=== PATIENT | male | born 1965 | race Caucasian/White ===

== ENCOUNTER 2016-08-16 07:52 | Day surgery (SDC) | payer MEDICARE ==
[2016-08-16 08:33] VITALS: RESP 16; TEMP 98.5
[2016-08-16] MEDS ORDERED: LACTATED RINGERS 1,000 ML IV SCH (08:49)
[2016-08-16 08:59] VITALS: BMI 34.3
[2016-08-16] MEDS ORDERED: PROPOFOL 10 MG/ML 20 ML VIAL IV ONE (09:22)
[2016-08-16] MEDS ORDERED: LIDOCAINE 1% INJ 10MG/ML (20 ML MDV) ONE (09:22)
--- NOTE | 2016-08-16 09:56 | P.PCN ---
Date of Procedure: 08/16/16 Preoperative Diagnosis: Blood per rectum Postoperative Diagnosis: Sigmoid diverticuli, poor bowel prep, for polypoid areas biopsied at 20 cm. 2 removed with snare polypectomy and retrieved for was very small amount retrieved , and 2 biopsied removed with cold biopsy forceps Procedure(s) Performed: Colonoscopy Anesthesia: MAC Surgeon: Janee Greer Estimated Blood Loss (ml): 0 IV fluids (ml): 200 Pathology: other (3 polypoid areas from 20 cm, removed with snare polypectomy and to cold biopsy) Condition: stable Disposition: PACU Indications for Procedure: Prior history of blood per rectum Operative Findings: Several small polypoid areas at 20 cm removed with snare polypectomy and retrieved, another attempted to be removed with snare polypectomy very small appeared to be obliterated with cautery, two biopsied removed with cold forceps Description of Procedure: Patient was taken to the endoscopy suite and following sedation rectal exam was performed. Patient was noted to have adequate sphincter tone no masses. Colonoscope was passed through the anus into the rectum. Bowel prep was suboptimal. Scope was able to be advanced however through the sigmoid colon, splenic flexure, transverse colon, hepatic flexure right colon down to the area of the cecum. Circumferential observation mucosa did not reveal any lesions of concern in the cecum or right colon. No lesions of concern were noted in the transverse colon. As the scope was withdrawn no lesions of concern were noted in the left colon there were scattered diverticuli. In the sigmoid colon at 20 cm several mucosal changes were identified to biopsied removed with snare polypectomy 1 was retrieved there was very small and felt to be obliterated, and to cold biopsy removal of mucosal changes were performed. Scope was brought down into the rectum was retroflexed no lesions of concern identified. Proximally 10 minutes were taken to withdraw the scope from the area of the cecum to the rectum. Impression/plan 1. Mucosal changes biopsied at 20 cm 2. Diverticuli Plan: 1. Await results of pathology 2. Conservative management of diverticuli
--- NOTE | 2016-08-16 09:58 | P.DS ---
Providers Attending physician: Janee Greer Primary care physician: Darnell Bazzi Plan - Discharge Summary Discharge Medication List Dextroamphetamine/Amphetamine [Adderall Xr] 2 tab PO QAM 08/16/16 [History] Diazepam [Valium] 10 mg PO BID 08/16/16 [History] Diovan(Unknown Dose) 1 tab PO HS 08/16/16 [History] Etodolac [Lodine] 400 mg PO BID 08/16/16 [History] Lipitor(Unknowndose) 1 tab PO DAILY 08/16/16 [History] Multivitamins, Thera [Multivitamin] 1 tab PO DAILY 08/16/16 [History] Naproxen [Naprosyn] 500 mg PO Q8H 08/16/16 [History] Sertraline [Zoloft] 200 mg PO DAILY 08/16/16 [History] Synthroid(Unknown Dose) 1 tab PO DAILY 08/16/16 [History] Unknown Water Pill 1 tab PO DAILY 08/16/16 [History] Zanaflex(Unknown Dose) 1 tab PO QID 08/16/16 [History] oxyCODONE HCL [OxyCONTIN] 40 mg PO TID 08/16/16 [History] traMADol HCl [Ultram] 100 mg PO TID 08/16/16 [History] traZODone HCL 150 mg PO HS 08/16/16 [History] Follow up Appointment(s)/Referral(s): Janee Greer MD [STAFF PHYSICIAN] - 1 Week Activity/Diet/Wound Care/Special Instructions: Diverticular diet Discharge Disposition: HOME SELF-CARE
[2016-08-16 10:47] VITALS: BP 152/90; PULSE 70
== END 2016-08-16 10:54 | disposition home or self-care (01) ==
LOC: ORWHC2ENDO 07:52
PROVIDERS: ATTEND Surgery
DX: D12.5 Benign neoplasm of sigmoid colon (principal); K63.5 Polyp of colon; K57.30 Diverticulosis of large intestine without perforation or abscess without bleeding; I10 Essential (primary) hypertension; E78.5 Hyperlipidemia, unspecified; F17.200 Nicotine dependence, unspecified, uncomplicated; E07.9 Disorder of thyroid, unspecified; G89.29 Other chronic pain; M54.5 Low back pain; Z79.891 Long term (current) use of opiate analgesic; Z79.899 Other long term (current) drug therapy; Z88.0 Allergy status to penicillin
CPT/HCPCS: 88305; 45380; 45385; J2001; J2704; 99153

== ENCOUNTER → 2019-06-12 | Outpatient (CLI) | payer OTHER ==
--- NOTE | 2019-06-14 10:00 | MR ---
EXAMINATION TYPE: MR lumbar spine wo/w con DATE OF EXAM: 06/12/2019 COMPARISON: 07/08/2016 HISTORY: Pain CONTRAST: 9 mL intravenous Gadavist. TECHNIQUE: Multiplanar, multisequence images of the lumbar spine were acquired. FINDINGS: L5-S1: No focal disc herniation is evident. Disc height appears preserved. Pedicle screws are present L5-S1 causing limitation. Some facet hypertrophy is suspected. AP spinal canal stenosis is not ident ified. Laminectomies been performed. L4-L5: No focal disc herniation or significant disc bulge is evident. No spinal canal stenosis presen t. Facet degenerative changes are present. Some right mild foraminal narrowing may be present. L3-L4: No significant disc bulge or disc herniation. No spinal canal stenosis. No foraminal stenosi s. Mild facet hypertrophy is present. L2-L3: No significant disc bulge or disc herniation. No spinal canal stenosis. No foraminal stenosi s. Mild facet hypertrophy is present on the left. L1-L2: No significant disc bulge or disc herniation. No spinal canal stenosis. No foraminal stenosi s. T12-L1: No significant disc bulge or disc herniation. No spinal canal stenosis. No foraminal stenos is. No abnormal enhancement. IMPRESSION: 1. Postsurgical changes L5-S1. 2. Facet hypertrophy appears greatest at L4-5. There is limitation of evaluation due to the magnetic susceptibility artifact. However, no obvious stenosis is identified. Mild right foraminal narrowing may be present at L4-5
== END ==
LOC: RADMRIMAIN 13:47
PROVIDERS: ATTEND Pain Medicine Interventional Pain Medicine
DX: M51.26 Other intervertebral disc displacement, lumbar region (principal); M47.816 Spondylosis without myelopathy or radiculopathy, lumbar region; Z98.890 Other specified postprocedural states
CPT/HCPCS: 72158; A9585

== ENCOUNTER → 2020-03-05 | Outpatient (CLI) | payer MEDICARE ==
[2020-03-05 17:06] LABS: African American GFR (CKD) 116.6 (60.0-200.0); Albumin 4.6 g/dL (3.80-4.90); Albumin/Globulin Ratio 2.3 (1.60-3.17); Anion Gap 11.4 mmol/L (4.00-12.00); BUN/Creat Ratio 17.5 Ratio (12.00-20.00); Calcium 9.7 mg/dL (8.7-10.3); Carbon Dioxide 20.6 mmol/L (21.6-31.8); Chol/HDL Ratio 3.08; LDL Cholesterol,Calculated 130.8 mg/dL (0.0-131.0); Non-African American GFR(CKD) 100.6 (60.0-200.0); Potassium 4.6 mmol/L (3.5-5.5); Total Bilirubin 0.6 mg/dL (0.3-1.2); Total Protein 6.6 g/dL (6.2-8.2); VLDL Calculation 35.2 mg/dL (5.00-40.00)
== END | disposition home or self-care (01) ==
LOC: LABWHC1 10:29
PROVIDERS: ATTEND Family Medicine
DX: I10 Essential (primary) hypertension (principal); E03.9 Hypothyroidism, unspecified; E78.2 Mixed hyperlipidemia; R73.01 Impaired fasting glucose
CPT/HCPCS: 36415; 80053; 80061; 83036; 84443

== ENCOUNTER → 2020-11-04 | Outpatient (CLI) | payer MEDICARE ==
--- NOTE | 2020-11-04 15:29 | XR ---
EXAMINATION TYPE: XR shoulder complete RT DATE OF EXAM: 11/04/2020 COMPARISON: None HISTORY: Arthritis, pain TECHNIQUE: 3 view right shoulder FINDINGS: No acute fracture or dislocation is evident. Ribs appear intact. Acromioclavicular joint galarza s mild hypertrophy. IMPRESSION: 1. No acute osseous abnormality right shoulder
== END | disposition home or self-care (01) ==
LOC: RADXRMAIN 11:32
PROVIDERS: ATTEND Nurse Practitioner Family
DX: M25.511 Pain in right shoulder (principal)

== ENCOUNTER 2021-09-02 11:02 | Emergency (ER) | payer MEDICARE ==
[2021-09-02] MEDS ORDERED: CYCLOBENZAPRINE 10 MG TAB PO STA (11:27)
--- NOTE | 2021-09-02 12:01 | ED ---
General Adult HPI - General Chief complaint: Back Pain/Injury Stated complaint: rib pain/cough/wants covid test Time Seen by Provider: 09/02/21 11:16 Source: patient Mode of arrival: ambulatory Limitations: no limitations - History of Present Illness Initial comments: This 55-year-old male asked medical history of COPD and hypertension presents to the emergency department with cough and right-sided back pain only with coughing since Monday. Patient states he was exposed to COVID-19 on Monday and began getting a dry cough on Monday morning. Patient states he has right-sided mid back pain only when coughing. Patient states he has not received any of the COVID-19 vaccines. Patient denies any mucus production, hemoptysis, bowel or bladder retention or incontinence, fever, shortness of breath, abdominal pain, nausea, headache, change in vision, vomiting. - Related Data Home Medications Medication Instructions Recorded Confirmed Atorvastatin [Lipitor] 20 mg PO DAILY 09/02/21 09/02/21 Dextroamphetamine/Amphetamine 30 mg PO DAILY 09/02/21 09/02/21 [Adderall] Furosemide [Lasix] 80 mg PO DAILY 09/02/21 09/02/21 Levothyroxine Sodium [Synthroid] 100 mcg PO DAILY 09/02/21 09/02/21 Losartan Potassium 100 mg PO DAILY 09/02/21 09/02/21 buPROPion XL [Wellbutrin XL] 150 mg PO DAILY 09/02/21 09/02/21 cloNIDine HCL [Catapres] 0.2 mg PO BID 09/02/21 09/02/21 lamoTRIgine [LaMICtal] 100 mg PO DAILY 09/02/21 09/02/21 Allergies Allergy/AdvReac Type Severity Reaction Status Date / Time Penicillins AdvReac Unknown Verified 09/02/21 12:26 Childhood Review of Systems ROS Statement: Those systems with pertinent positive or pertinent negative responses have been documented in the HPI. ROS Other: All systems not noted in ROS Statement are negative. Past Medical History Past Medical History: COPD, GERD/Reflux, Hyperlipidemia, Hypertension, Musculoskeletal Disorder History of Any Multi-Drug Resistant Organisms: None Reported Past Surgical History: Back Surgery Past Psychological History: ADD/ADHD Smoking Status: Current every day smoker Past Alcohol Use History: Daily Past Drug Use History: None Reported General Exam Limitations: no limitations General appearance: alert, in no apparent distress Head exam: Present: atraumatic, normocephalic, normal inspection Eye exam: Present: normal appearance, PERRL, EOMI. Absent: scleral icterus, conjunctival injection, periorbital swelling ENT exam: Present: normal exam, mucous membranes moist Neck exam: Present: full ROM Respiratory exam: Present: wheezes (Patient states he always has wheezing due to his COPD.). Absent: respiratory distress, rales, rhonchi, stridor, chest wall tenderness Cardiovascular Exam: Present: regular rate, normal rhythm, normal heart sounds. Absent: systolic murmur, diastolic murmur, rubs, gallop, clicks GI/Abdominal exam: Present: soft, normal bowel sounds. Absent: distended, tenderness, guarding, rebound, rigid Extremities exam: Present: normal inspection, full ROM, normal capillary refill. Absent: tenderness, pedal edema, joint swelling, calf tenderness Back exam: Present: full ROM, paraspinal tenderness (Right-sided paraspinal tenderness to lower thoracic spine). Absent: CVA tenderness (R), CVA tenderness (L), muscle spasm, vertebral tenderness Neurological exam: Present: alert, oriented X3, CN II-XII intact Psychiatric exam: Present: normal affect, normal mood Skin exam: Present: warm, dry, intact, normal color. Absent: rash Course Vital Signs 09/02/21 09/02/21 09/02/21 11:10 12:03 13:26 Temperature 98.3 F 98.1 F Pulse Rate 93 83 79 Respiratory 18 16 16 Rate Blood Pressure 186/119 178/119 193/108 O2 Sat by Pulse 95 96 98 Oximetry Medical Decision Making - Medical Decision Making This 55-year-old male presents emergency Department with a dry cough and was right paraspinal pain when coughing since Monday. Patient states his back pain is getting better. COVID-19 positive. Chest x-ray impression: No acute process. Underlying emphysematous change may be present on lateral view with increased retrosternal air space. There is no suspicious focal airspace opacity, pleural effusion, or pneumothorax seen. Patient blood pressure elevated, he states he is on blood pressure medication at home but has not taken it lately. Patient states he only takes his blood pressure medication when he gets a headache. Discussed the risk of high blood pressure and advised patient to follow-up with primary care provider in next 1-2 days and to take medication as prescribed. Patient states he does not had a headache or change in vision at this time. Instructions given on getting a pulse oximeter and to take vitamin C, vitamin D and zinc. Patient states he would like to receive the covid 19 antibody infusion. He received the infusion without any complications. Patient to be sent home with strict return precautions. Patient verbally agreed to plan. Patient sent home in stable condition and to follow-up with primary care provider next 1-2 days. Case discussed my attending, Dr. Carlson. - Lab Data Lab Results 09/02/21 Range/Units 11:42 Coronavirus (PCR) Detected A (Not Detectd) Disposition Clinical Impression: COVID-19 Disposition: HOME SELF-CARE Condition: Stable Instructions (If sedation given, give patient instructions): Coronavirus Disease 2019 (COVID-19) Additional Instructions: Please return to the emergency department with any concerning, new, worsening symptoms. Advised to get pulse oximeter from [facility] and to return to the emergency department with oxygen drops low 90%. [id number] zinc, vitamin C, vitamin D. Candidate Tylenol or Motrin as directed for symptoms. Please follow-up with primary care provider next 1-2 days. Is patient prescribed a controlled substance at d/c from ED?: No Referrals: Rigoberto Hooker MD [Primary Care Provider] - 1-2 days Time of Disposition: 13:55
--- NOTE | 2021-09-02 12:17 | XR ---
EXAMINATION TYPE: XR chest 2V DATE OF EXAM: 09/02/2021 COMPARISON: NONE HISTORY: Cough and right-sided pain. TECHNIQUE: Frontal and lateral views of the chest are obtained. FINDINGS: Underlying emphysematous change may be present on lateral view with increased retrosternal airspace. There is no suspicious focal air space opacity, pleural effusion, or pneumothorax seen. T he cardiac silhouette size is within normal limits. The osseous structures are intact. IMPRESSION: No acute process.
[2021-09-02] MEDS ORDERED: SOTROVIMAB (EUA) 500 MG in SODIUM CHLORIDE 0.9% 100 ML IVPB ONE (13:30)
[2021-09-02] MEDS ORDERED: SODIUM CHLORIDE 0.9% 50 ML IVPB ONE (14:00)
[2021-09-02 15:01] VITALS: BP 176/107; PULSE 80; RESP 18; TEMP 97.8
== END 2021-09-02 15:04 | disposition home or self-care (01) ==
LOC: EC 11:02
DX: U07.1 COVID-19 (principal); I10 Essential (primary) hypertension; J44.9 Chronic obstructive pulmonary disease, unspecified; E78.5 Hyperlipidemia, unspecified; K21.9 Gastro-esophageal reflux disease without esophagitis; F17.200 Nicotine dependence, unspecified, uncomplicated; F90.9 Attention-deficit hyperactivity disorder, unspecified type; Z79.890 Hormone replacement therapy; Z79.899 Other long term (current) drug therapy
CPT/HCPCS: 87635; 71046; 99284; Q0247

== ENCOUNTER → 2022-12-22 | Outpatient (CLI) | payer MEDICARE ==
--- NOTE | 2022-12-22 14:46 | P.SLEEP ---
History of Present Illness DATE: 12/22/2022 CONSULTATION/NEW PATIENT EVALUATION HISTORY OF PRESENT ILLNESS/SLEEP-WAKE EVALUATION: 57 year old gentleman had been evaluated in the sleep center for possible obstructive sleep apnea hypopnea syndrome. SLEEP SCHEDULE: Usually sleep schedule is about 6 hours per night. FALLING ASLEEP: Sometimes patient has problems with the falling asleep, has TV set and bedroom. DURING SLEEP: Patient sleeps by himself, no information about snoring. Patient wakes up from sleep up to 5 times with 3 episodes of nocturia. No history of hypnogogical hallucinations, sleep paralysis, or cataplexy. DURING THE DAY/WAKE STATE: In the morning patient wake up tired. [place] sleepiness scale is 2. Patient doesn't take naps. PAST MEDICAL HISTORY: Hypertension, depression, hypothyroidism, hyperlipidemia, back problems. PAST SURGICAL HISTORY: Back surgery. MEDICATIONS: Clonidine 0.2 mg twice a day, Adderall 30 mg twice a day, Lipitor, Synthroid. SOCIAL HISTORY: Patient smokes for about 45 years presently half pack a day, alcohol consumption daily 46 beers. FAMILY HISTORY: Heart problems. REVIEW OF SYSTEMS: Multiple awakenings from sleep. No fevers. No double vision. No recent chest pain. No shortness of breath. No abdominal pain. No bleeding episodes. No blood in urine. No seizure episodes. PHYSICAL EXAMINATION: GENERAL: A pleasant patient without any distress. VITAL SIGNS: BP 182/120 , HR 95 , RR 16 , weight 231.6 pounds, height 5 foot 6.5 inches, body mass index 37.0 . HEENT: PERRLA, EOMI. Evaluation of oropharynx showed tongue protrudes midline, low position of soft palate Mallampati 4. NECK: Supple. No JVD. Thyroid is not palpable. 18 inches in circumference. LUNGS: Clear to percussion and to auscultation. Good air exchange. No wheezing or rhonchi. HEART: S1, S2 regular. No murmurs, gallops or rubs. ABDOMEN: Soft and nontender. Bowel sounds are present. No organomegaly appreciated. Obese EXTREMITIES: No clubbing or cyanosis. FIRST COOK: Awake, alert, and oriented x3. Cranial nerves 2 to 7 intact. There is no fasciculation or atrophy noted. No focal deficits observed. ASSESSMENT: 1. Multiple awakenings from sleep, extremely low position of soft palate Mallampati 4, wide neck 18 inches in circumference. Obstructive sleep apnea- hypopnea syndrome. 2. Obesity, body mass index 37.0. 3. Hypertension. 4. Depression. 5 hypothyroidism. 6 . Hyperlipidemia. 7. Back problems, status post back surgery. PLAN: 1. Polysomnography for evaluation of patient's breathing during sleep. 2. CPAP/BiPAP titration if sleep study confirms obstructive sleep apnea- hypopnea syndrome. 3. Preferable position during sleep on the side. 4. No driving if patient feels any sleepiness. Patient is aware of civil and criminal liability for unsafe driving. 5. Sleep hygiene with regular sleep time for at least 7.5-8 hours. 6. Watching and losing weight. Thank you very much for referring this patient for consultation. Sincerely, Iain Mcgraw MD, PhD, FAASM. Diplomat of [place] [employer], Sleep Medicine Board by [place] [employer] [place] [employer] [facility] [place] Past Medical History Past Medical History: COPD, GERD/Reflux, Hyperlipidemia, Hypertension, Musculoskeletal Disorder History of Any Multi-Drug Resistant Organisms: None Reported Past Surgical History: Back Surgery Past Psychological History: ADD/ADHD Smoking Status: Current every day smoker Past Alcohol Use History: Daily Past Drug Use History: None Reported Medications and Allergies Home Medications Medication Instructions Recorded Confirmed Type Atorvastatin [Lipitor] 20 mg PO DAILY 09/02/21 09/02/21 History Dextroamphetamine/Amphetamine 30 mg PO DAILY 09/02/21 09/02/21 History [Adderall] Furosemide [Lasix] 80 mg PO DAILY 09/02/21 09/02/21 History Levothyroxine Sodium [Synthroid] 100 mcg PO DAILY 09/02/21 09/02/21 History Losartan Potassium 100 mg PO DAILY 09/02/21 09/02/21 History buPROPion XL [Wellbutrin XL] 150 mg PO DAILY 09/02/21 09/02/21 History cloNIDine HCL [Catapres] 0.2 mg PO BID 09/02/21 09/02/21 History lamoTRIgine [LaMICtal] 100 mg PO DAILY 09/02/21 09/02/21 History Allergies Allergy/AdvReac Type Severity Reaction Status Date / Time Penicillins AdvReac Unknown Verified 09/02/21 12:26 Childhood Sleep Note - Sleep Note Sleep Note: Temperature: Pulse Rate: Respiratory Rate: Blood Pressure: SpO2: Height: Weight: BMI: Neck Circumference:
== END ==
LOC: SLEEP 14:11
PROVIDERS: ATTEND Internal Medicine
DX: G47.33 Obstructive sleep apnea (adult) (pediatric) (principal); E66.9 Obesity, unspecified; I10 Essential (primary) hypertension; F32.A Depression, unspecified; E03.9 Hypothyroidism, unspecified; E78.5 Hyperlipidemia, unspecified; Z99.89 Dependence on other enabling machines and devices; M54.9 Dorsalgia, unspecified; Z68.37 Body mass index [BMI] 37.0-37.9, adult; Z88.0 Allergy status to penicillin; F17.210 Nicotine dependence, cigarettes, uncomplicated; Z98.890 Other specified postprocedural states
CPT/HCPCS: 99211

== ENCOUNTER 2023-01-25 19:29 | Outpatient (CLI) | payer MEDICARE | END 2023-01-26 23:59 | LOC: 3 N SLEEP 19:29 → EDSTATUS 19:30 → 3 N SLEEP 01-26 06:25 | PROVIDERS: ATTEND Internal Medicine | DX: G47.33 Obstructive sleep apnea (adult) (pediatric) (principal); F17.200 Nicotine dependence, unspecified, uncomplicated; Z88.0 Allergy status to penicillin | CPT/HCPCS: 95810 ==

== ENCOUNTER → 2023-05-23 | Outpatient (CLI) | payer MEDICARE | LOC: CPPFTMAIN 11:38 | PROVIDERS: ATTEND Family Medicine | DX: J42 Unspecified chronic bronchitis (principal); R06.2 Wheezing; F17.200 Nicotine dependence, unspecified, uncomplicated; Z88.0 Allergy status to penicillin | CPT/HCPCS: 94060; 94726; 94729 ==

== ENCOUNTER 2023-10-26 11:10 | Emergency (ER) | payer MEDICARE ==
[2023-10-26 11:44] VITALS: TEMP 100.4
[2023-10-26] MEDS: methylPREDNISolone SOD SUCCI 125 MG/2 ML VIAL IM ONE (12:11)
[2023-10-26] MEDS: ACETAMINOPHEN TAB 500 MG TAB PO STA (12:11)
--- NOTE | 2023-10-26 12:11 | ED ---
General Adult HPI - General Chief complaint: Fever Stated complaint: Cough, congestion Time Seen by Provider: 10/26/23 11:26 Source: patient, RN notes reviewed Mode of arrival: ambulatory Limitations: no limitations - History of Present Illness Initial comments: 57-year-old male with a past medical history of COPD presents to the emergency department with chief complaint of cough, congestion. He states that this started yesterday. He reports chills yesterday. He also admits to sore throat and has been using wuay-mya-adjrhhy spray which has helped. He notes that he was coughing very hard yesterday feels like he pulled a muscle in his abdomen. - Related Data Home Medications Medication Instructions Recorded Confirmed Dextroamphetamine/Amphetamine 30 mg PO BID 09/02/21 10/26/23 [Adderall] Furosemide [Lasix] 80 mg PO DAILY PRN 09/02/21 10/26/23 cloNIDine HCL [Catapres] 0.2 mg PO BID 09/02/21 10/26/23 Budesonide/Formoterol Fumarate 2 puff INHALATION RT-BID 10/26/23 10/26/23 [Symbicort 160-4.5 Mcg Inhaler] Ipratropium-Albuterol Nebulize 3 ml INHALATION RT-TID 10/26/23 10/26/23 [Duoneb 0.5 mg-3 mg/3 ml Soln] Montelukast [Singulair] 10 mg PO HS 10/26/23 10/26/23 Previous Rx's Medication Instructions Recorded Oseltamivir [Tamiflu] 75 mg PO Q12HR #10 cap 10/26/23 Allergies Allergy/AdvReac Type Severity Reaction Status Date / Time Penicillins AdvReac Unknown Verified 10/26/23 12:49 Childhood Review of Systems ROS Statement: Those systems with pertinent positive or pertinent negative responses have been documented in the HPI. ROS Other: All systems not noted in ROS Statement are negative. Past Medical History Past Medical History: Asthma, COPD, GERD/Reflux, Hyperlipidemia, Hypertension, Musculoskeletal Disorder History of Any Multi-Drug Resistant Organisms: None Reported Past Surgical History: Back Surgery Past Psychological History: ADD/ADHD Smoking Status: Current every day smoker Past Alcohol Use History: Daily Past Drug Use History: None Reported General Exam Limitations: no limitations General appearance: alert, in no apparent distress Head exam: Present: atraumatic, normocephalic, normal inspection Eye exam: Present: normal appearance, PERRL, EOMI. Absent: scleral icterus, conjunctival injection, periorbital swelling ENT exam: Present: normal exam, mucous membranes moist Respiratory exam: Present: wheezes. Absent: respiratory distress, rales, rhonchi, stridor Cardiovascular Exam: Present: regular rate, normal rhythm, normal heart sounds. Absent: systolic murmur, diastolic murmur, rubs, gallop, clicks GI/Abdominal exam: Present: soft, normal bowel sounds. Absent: distended, tenderness, guarding, rebound, rigid Extremities exam: Present: normal inspection, full ROM, normal capillary refill. Absent: tenderness, pedal edema, joint swelling, calf tenderness Back exam: Present: normal inspection Neurological exam: Present: alert, oriented X3 Psychiatric exam: Present: normal affect, normal mood Skin exam: Present: warm, dry, intact, normal color. Absent: rash Course Vital Signs 10/26/23 10/26/23 10/26/23 11:19 12:18 13:19 Temperature 100.4 F H Pulse Rate 102 H 104 H Respiratory 22 18 Rate Blood Pressure 136/82 O2 Sat by Pulse 94 L Oximetry 10/26/23 10/26/23 13:29 14:24 Temperature Pulse Rate 100 82 Respiratory 18 Rate Blood Pressure 157/80 O2 Sat by Pulse 92 L Oximetry Medical Decision Making - Medical Decision Making Was pt. sent in by a medical professional or institution ([facility]din, FURNITURE M[employer] HELPER, urgent ca re, hospital, or care home...) When possible be specific @ -No Did you speak to anyone other than the patient for history (EMS, parent, family, police, friend...)? What history was obtained from this source @ -No Did you review nursing and triage notes (agree or disagree)? Why? @ -I reviewed and agree with nursing and triage notes Were old charts reviewed (outside hosp., previous admission, EMS record, old EKG, old radiological studies, urgent care reports/EKG's, care home records)? Report findings @ -No old charts were reviewed Differential Diagnosis (chest pain, altered mental status, abdominal pain women, abdominal pain men, vaginal bleeding, weakness, fever, dyspnea, syncope, headache, dizziness, GI bleed, back pain, seizure, CVA, palpatations, mental health, musculoskeletal)? @ -Differential Fever: Pneumonia, viral URI, endocarditis, myocarditis, pericarditis, otitis, sinusitis, peritonsillar Abscess, retropharyngeal Abscess, epiglottitis, peritonitis, appendicitis, Zayda cystitis, diverticulitis, hepatitis, colitis, UTI, PID, TOA, pyelonephritis, prostatitis, epididymitis, meningitis, encephalitis, pulmonary embolism, CVA, thyroid storm, pancreatitis, adrenal crisis, cavernous sinus thrombosis, this is not meant to be an all-inclusive list. EKG interpreted by me (3pts min.). @ -None X-rays interpreted by me (1pt min.). @ -Chest x-ray shows no acute infiltrate CT interpreted by me (1pt min.). @ -None done U/S interpreted by me (1pt. min.). @ -None done What testing was considered but not performed or refused? (CT, X-rays, U/S, labs)? Why? @ -None What meds were considered but not given or refused? Why? @ -None Did you discuss the management of the patient with other professionals (professionals i.e. , PA, FURNITURE MOVER HELPER, lab, RT, psych nurse, social services, wallpaper consultant, teacher, child support officer, case resource manager)? Give summary @ -No Was smoking cessation discussed for >3mins.? @ -No Was critical care preformed (if so, how long)? @ -No Were there social determinants of health that impacted care today? How? (Homelessness, low income, unemployed, alcoholism, drug addiction, transportation, low edu. Level, literacy, decrease access to med. care, half-way, rehab)? @ -No Was there de-escalation of care discussed even if they declined (Discuss DNR or withdrawal of care, Hospice)? DNR status @ -No What co-morbidities impacted this encounter? (DM, HTN, Smoking, COPD, CAD, Cancer, CVA, ARF, Chemo, Hep., AIDS, mental health diagnosis, sleep apnea, morbid obesity)? @ -None Was patient admitted / discharged? Hospital course, mention meds given and route, prescriptions, significant lab abnormalities, going to OR and other pertinent info. @ -Discharge. Patient presented to the emergency department for fever, cough and congestion. X-ray obtained which shows no acute infiltrate. Patient has a positive for influenza A. On examination, patient does have wheezes throughout but is in no respiratory distress. Patient was given a dose of Solu-Medrol and a breathing treatment. Patient advised positive sinus and will be discharged home. Patient will be started on Tamiflu. Patient understanding agreeable plan. Strict return precautions discussed. Patient stable at time of discharge. Case discussed with Matt Undiagnosed new problem with uncertain prognosis? @ -No Drug Therapy requiring intensive monitoring for toxicity (Heparin, Nitro, Insul in, Cardizem)? @ -No Were any procedures done? @ -No Diagnosis/symptom? @ -Influenza A Acute, or Chronic, or Acute on Chronic? @ -Acute Uncomplicated (without systemic symptoms) or Complicated (systemic symptoms)? @ -Uncomplicated Side effects of treatment? @ -No Exacerbation, Progression, or Severe Exacerbation? @ -No Poses a threat to life or bodily function? How? (Chest pain, [place], [place], pneumonia, PE, COPD, DKA, ARF, appy, cholecystitis, CVA, Diverticulitis, Homicidal, Suicidal, threat to staff... and all critical care pts) @ -No - Lab Data Lab Results 10/26/23 Range/Units 11:57 Influenza Type A (PCR) Detected A (Not Detectd) Influenza Type B (PCR) Not Detected (Not Detectd) RSV (PCR) Not Detected (Not Detectd) SARS-CoV-2 (PCR) Not Detected (Not Detectd) Disposition Clinical Impression: Influenza Disposition: HOME SELF-CARE Condition: Stable Instructions (If sedation given, give patient instructions): Fever in Adults (ED), Influenza (ED) Additional Instructions: Alternate Tylenol and Motrin for fever. Utilize over the counter medications for cough and congestion. Return to the emergency department for new or worsening symptoms. Prescriptions: Oseltamivir [Tamiflu] 75 mg PO Q12HR #10 cap Is patient prescribed a controlled substance at d/c from ED?: No Referrals: None,Stated [Primary Care Provider] - 1-2 days
[2023-10-26 12:19] VITALS: RESP 18
[2023-10-26] MEDS: IPRATROPIUM-ALBUTEROL 3 ML NEB INHALATION STA (13:18)
--- NOTE | 2023-10-26 13:48 | XR ---
EXAMINATION TYPE: XR chest 2V DATE OF EXAM: 10/26/2023 COMPARISON: 09/10/2021 HISTORY: 57-year-old male with cough for 2 days TECHNIQUE: PA and lateral views FINDINGS: The cardiomediastinal silhouette, aorta, and pulmonary vasculature are within normal limits. Lungs an d pleural spaces are clear. IMPRESSION: No acute cardiopulmonary process.
[2023-10-26 14:40] VITALS: BP 157/80; PULSE 82
== END 2023-10-26 14:25 | disposition home or self-care (01) ==
LOC: EC 11:10
DX: J10.1 Influenza due to other identified influenza virus with other respiratory manifestations (principal); J44.9 Chronic obstructive pulmonary disease, unspecified; F17.200 Nicotine dependence, unspecified, uncomplicated
CPT/HCPCS: 94640; 87636; 71046; 99283; 96372; J2930

== ENCOUNTER → 2023-11-23 | Outpatient (CLI) | payer MEDICARE ==
[2023-11-23 15:57] LABS: ALT 33 U/L (10-49); AST 28 U/L (14-35); Albumin 4.6 g/dL (3.8-4.9); Albumin/Globulin Ratio 1.77 Ratio (1.60-3.17); Alkaline Phosphatase 50 U/L (41-126); BUN/Creat Ratio 10.62 Ratio (12.00-20.00); Blood Urea Nitrogen 8.5 mg/dL (9.0-27.0); Calcium 9.6 mg/dL (8.7-10.3); Carbon Dioxide 20.3 mmol/L (21.6-31.8); Chloride 106 mmol/L (96-109); Chol/HDL Ratio 3.35 Ratio; Globulin 2.6 g/dL (1.6-3.3); Glucose 115 mg/dL (70-110); LDL Cholesterol,Calculated 174.2 mg/dL (0.0-131.0); Potassium 4.3 mmol/L (3.5-5.5); Sodium 142 mmol/L (135-145); Total Bilirubin 0.3 mg/dL (0.3-1.2); Total Protein 7.2 g/dL (6.2-8.2)
== END | disposition home or self-care (01) ==
LOC: LABWHC1 09:49
PROVIDERS: ATTEND Family Medicine
DX: E03.9 Hypothyroidism, unspecified (principal); E78.2 Mixed hyperlipidemia; R73.01 Impaired fasting glucose
CPT/HCPCS: 36415; 80053; 80061; 83036; 84443

== ENCOUNTER → 2024-03-12 | Outpatient (CLI) | payer MEDICARE ==
[2024-03-12 16:12] LABS: ALT 24 U/L (10-49); AST 19 U/L (14-35); Albumin 4.4 g/dL (3.8-4.9); Alkaline Phosphatase 57 U/L (41-126); BUN/Creat Ratio 12.78 Ratio (12.00-20.00); Blood Urea Nitrogen 11.5 mg/dL (9.0-27.0); Calcium 9.2 mg/dL (8.7-10.3); Carbon Dioxide 21.6 mmol/L (21.6-31.8); Chloride 103 mmol/L (96-109); Glucose 118 mg/dL (70-110); Potassium 4.4 mmol/L (3.5-5.5); Sodium 140 mmol/L (135-145); Total Bilirubin 0.4 mg/dL (0.3-1.2); Total Protein 6.4 g/dL (6.2-8.2)
== END | disposition home or self-care (01) ==
LOC: LABWHC1 10:38
PROVIDERS: ATTEND Family Medicine
DX: E11.9 Type 2 diabetes mellitus without complications (principal)
CPT/HCPCS: 36415; 80053; 83036

== ENCOUNTER → 2024-11-20 | Outpatient (CLI) | payer MEDICARE ==
--- NOTE | 2024-11-20 10:43 | XR ---
EXAMINATION TYPE: XR chest 2V DATE OF EXAM: 11/20/2024 CLINICAL INDICATION: Male, 58 years old with history of R09.89 congestion, TECHNIQUE: Frontal and lateral views of the chest are obtained. COMPARISON: Chest x-ray October 26, 2023 FINDINGS: There is no focal air space opacity, pleural effusion, or pneumothorax seen. The cardiac silhouette size is stable and within normal limits. The osseous structures are intact. IMPRESSION: No acute cardiopulmonary process. No significant change from most recent prior. [facility], , 11/20/2024 10:41 AM
== END | disposition home or self-care (01) ==
LOC: RADXRMAIN 10:26
PROVIDERS: ATTEND Nurse Practitioner Family
DX: J44.1 Chronic obstructive pulmonary disease with (acute) exacerbation (principal); R09.89 Other specified symptoms and signs involving the circulatory and respiratory systems
CPT/HCPCS: 71046

== ENCOUNTER → 2024-12-04 | Outpatient (CLI) | payer MEDICARE ==
[2024-12-04 10:16] LABS: Basophils # (A) 0.03 X 10*3/uL (0.00-0.10); Basophils % (A) 0.4 %; Eosinophils # (A) 0 X 10*3/uL (0.04-0.35); Eosinophils % (A) 0 %; HCT 45.6 % (39.6-50.0); HGB 15.2 g/dL (13.0-17.0); Lymphocytes # (A) 2.98 X 10*3/uL (0.90-5.00); Lymphocytes % (A) 34.8 %; MCH 33.5 pg (27.0-32.0); MCHC 33.3 g/dL (32.0-37.0); MCV 100.4 FL (80.0-97.0); Mean Platelet Volume 9.8 FL (9.5-12.2); Monocytes % (A) 8.2 %; NRBC Per 100 WBC 0 X 10*3/uL (0.00-0.01); Neutrophils # (A) 4.84 X 10*3/uL (1.80-7.70); Neutrophils % (A) 56.4 %; Platelet Count 302 X 10*3/uL (140-440); RBC 4.54 X 10*6/uL (4.40-5.60); RDW 12.7 % (11.5-14.5); WBC 8.57 X 10*3/uL (4.50-10.00)
[2024-12-04 10:44] LABS: ALT 26 U/L (10-49); AST 23 U/L (14-35); Albumin 4.5 g/dL (3.8-4.9); Albumin/Globulin Ratio 1.96 Ratio (1.60-3.17); Alkaline Phosphatase 53 U/L (41-126); Blood Urea Nitrogen 14.6 mg/dL (9.0-27.0); Calcium 9.6 mg/dL (8.7-10.3); Carbon Dioxide 27.6 mmol/L (21.6-31.8); Chloride 101 mmol/L (96-109); Chol/HDL Ratio 2.12 Ratio; Globulin 2.3 g/dL (1.6-3.3); Glucose 122 mg/dL (70-110); LDL Cholesterol,Calculated 81.8 mg/dL (0.0-131.0); Magnesium 2.1 mg/dL (1.5-2.4); Potassium 4.2 mmol/L (3.5-5.5); Sodium 141 mmol/L (135-145); Total Bilirubin 0.9 mg/dL (0.3-1.2); Total Protein 6.8 g/dL (6.2-8.2)
--- NOTE | 2024-12-04 11:31 | CA ---
Transthoracic Echo Report Name: Asa Watson Age: 58 Gender: M : 1965 Exam Date: 12/04/2024 09:57 Exam Location: [facility] Ht (in): 64 Wt (lb): 225 Ordering Physician: Eugene Laird DO Attending/Referring Phys: Lizette Billinsgley [facility] [employer] Carissa Perales, JEANNA Procedure CPT: Indications: R60.0 BLE EDEMA R11.9 TYPE 2 DIABETES LABS Cardiac Hx: Technical Quality: Fair Contrast 1: Total Dose (mL): Contrast 2: Total Dose (mL): MEASUREMENTS (Male / Female) Normal Values 2D ECHO LV Diastolic Diameter PLAX 3.8 cm 4.2 - 5.9 / 3.9 - 5.3 cm LV Systolic Diameter PLAX 3.2 cm IVS Diastolic Thickness 1.6 cm 0.6 - 1.0 / 0.6 - 0.9 cm LVPW Diastolic Thickness 1.9 cm 0.6 - 1.0 / 0.6 - 0.9 cm LV Relative Wall Thickness 0.9 RV Internal Dim ED PLAX 2.5 cm LA Systolic Diameter LX 4.0 cm 3.0 - 4.0 / 2.7 - 3.8 cm LV Diastolic Volume MOD 4C 50.0 cm??? LV Systolic Volume MOD 4C 17.1 cm??? LV Ejection Fraction MOD 4C 65.9 % LV Cardiac Index MOD 4C 1003.3 cm???/min???m??? LV Diastolic Length 4C 7.7 cm LV Systolic Length 4C 6.5 cm M-MODE Aortic Root Diameter MM 3.6 cm LA Systolic Diameter MM 3.3 cm LA Ao Ratio MM 0.9 AV Cusp Separation MM 2.2 cm DOPPLER Mitral E Point Velocity 76.3 cm/s Mitral A Point Velocity 67.7 cm/s Mitral E to A Ratio 1.1 MV Deceleration Time 279.0 ms MV E' Velocity 5.2 cm/s Mitral E to MV E' Ratio 14.7 TR Peak Velocity 198.3 cm/s TR Peak Gradient 15.7 mmHg Right Ventricular Systolic Press 20.7 mmHg FINDINGS Left Ventricle Left ventricular ejection fraction is estimated at 55-60.Normal left ventricular systolic function with no obvious regional wall motion abnormalities. Severely increased left ventricular wall thickness. Left ventricular cavity size normal. Right Ventricle Normal right ventricular size and function. Right ventricular systolic pressure within normal limits. Right Atrium Normal right atrial size. Left Atrium Normal left atrial size. Mitral Valve Structurally normal mitral valve. Trace mitral regurgitation. No mitral stenosis. Aortic Valve Trileaflet aortic valve. No aortic stenosis. No aortic regurgitation. Tricuspid Valve Structurally normal tricuspid valve. Trace tricuspid regurgitation. No tricuspid stenosis. Pulmonic Valve Pulmonic valve not well visualized. Pericardium No pericardial or pleural effusion. Aorta Aorta at upper limits of normal. CONCLUSIONS Technically difficult study. Normal left ventricular size and systolic function with severe hypertrophy Very limited Doppler study with trace mitral and tricuspid regurgitation Previewed by: Dr. Vickie Calderon MD (Electronically Signed) Final Date: 04 December 2024 11:30
--- NOTE | 2024-12-04 11:38 | US ---
EXAMINATION TYPE: US arterial LE single level DATE OF EXAM: 12/04/2024 10:45 AM COMPARISONS: None. CLINICAL INDICATION: Male, 58 years old with history of R60.0 BLE EDEMA R11.9 TYPE 2 DIABETES LABS; l eg swelling per patient, diabetic, leg cramps TECHNIQUE: Systolic pressures were taken of the upper and lower extremity arteries with ankle-brachia l indices and toe brachial indices calculated bilaterally. History of: Smoker: Current Smoker Hypertension: Yes Diabetic: Yes Hyperlipidemia: Yes TIA/CVA: No Previous Vascular Surgery: Yes CAD: No NE: No Vascular Ulcers: No Claudication: No Gangrene: No FINDINGS: Doppler Waveforms: Right: Right femoral, popliteal, posterior tibial, dorsalis pedis triphasic waveforms. Monophasic wav eforms within the digit. Left: Triphasic waveform within the dorsalis pedis artery. Monophasic waveforms within the femoral an d popliteal arteries. Biphasic waveform within the posterior tibial artery. Monophasic waveform withi n the digit. Brachial Artery systolic pressure: Right: 107 Left: 120 Posterior Tibial artery systolic pressure: Right: 137 Left: 137 Dorsalis Pedis artery systolic pressure: Right: 129 Left: 103 Toe artery systolic pressure: Right: 113 Left: 126 Ankle-Brachial Indices: Right: 1.1 Left: 1.1 Toe Brachial Indices: Right: 0.9 Left: 1.1 (Normal > 0.6; Mild 0.35 - 0.59, Moderate 0.12 - 0.34, Severe <0.12) IMPRESSION: FRANCISCO: Right: Normal 0.9 - 1.4, Recommendation: None Left: Normal 0.9 - 1.4, Recommendation: None [facility], , 12/04/2024 11:36 AM
[2024-12-04 17:41] LABS: Microalbumin Creatinine Ratio <71 mg/g Cr (0-30)
== END | disposition home or self-care (01) ==
LOC: LABWHC1 07:49
PROVIDERS: ATTEND Student in an Organized Health Care Education/Training Program
DX: E11.9 Type 2 diabetes mellitus without complications (principal); E03.9 Hypothyroidism, unspecified; E78.2 Mixed hyperlipidemia; M79.604 Pain in right leg; M79.605 Pain in left leg; R60.0 Localized edema
CPT/HCPCS: 36415; 80053; 80061; 82043; 82570; 83036; 83735; 84443; 85025; 93005; 93306; 93922